=== PATIENT | male | born 1955 | race Caucasian/White ===

== ENCOUNTER 2018-01-08 17:00 | Emergency (ER) | payer BC ==
[2018-01-08] MEDS ORDERED: SODIUM CHLORIDE 0.9% FLUSH 10 ML SOL IV PRN (17:33)
[2018-01-08] MEDS: SODIUM CHLORIDE 0.9% 1000ML 1,000 ML IV SCH ×2 (17:42→18:45)
[2018-01-08 17:46] LABS: BASOPHILS % (AUTO) 1 % (0-3); EOSINOPHILS % (AUTO) 2 % (0-9); HEMATOCRIT 46 % (39-53); MEAN CORPUSCULAR HGB CONC 34.4 gm/dl (32.0-36.0); MEAN CORPUSCULAR VOLUME 86 fL (80-100); MONOCYTES % (AUTO) 20.7 % (0-12); NEUTROPHILS % (AUTO) 65.4 % (37-80)
[2018-01-08 17:52] LABS: CALCIUM 8.3 mg/dl (8.5-10.1); POTASSIUM 3.4 mMol/L (3.5-5.1)
[2018-01-08 18:17] VITALS: RESP 16
[2018-01-08] MEDS ORDERED: SODIUM CHLORIDE 0.9% 1000ML 1,000 ML IV SCH (18:30)
[2018-01-08] MEDS ORDERED: POTASSIUM CHLORIDE 10 MEQ TER PO ONE ×2 (18:33→21:00)
[2018-01-08] MEDS ORDERED: POTASSIUM CHLORIDE 10 MEQ TER ONE ×2 (18:34→21:21)
[2018-01-08] MEDS ORDERED: SODIUM CHLORIDE 0.9% 1000ML 1,000 ML IV ONE (20:03)
[2018-01-08 20:30] LABS: BASOPHILS % (AUTO) 1 % (0-3); EOSINOPHILS % (AUTO) 1 % (0-9); HEMATOCRIT 42 % (39-53); MEAN CORPUSCULAR HGB CONC 33.7 gm/dl (32.0-36.0); MEAN CORPUSCULAR VOLUME 87 fL (80-100); MONOCYTES % (AUTO) 21.6 % (0-12); NEUTROPHILS % (AUTO) 62.6 % (37-80)
[2018-01-08 20:37] LABS: CALCIUM 7.7 mg/dl (8.5-10.1); POTASSIUM 3.5 mMol/L (3.5-5.1)
[2018-01-08 21:27] VITALS: TEMP 97.4
[2018-01-08 22:08] LABS: APPEARANCE,URINE Slightly Cloudy; BILIRUBIN,URINE 1+ (NEGATIVE); COLOR,URINE Dark yellow; GLUCOSE, URINE (UA) NEGATIVE (NEGATIVE); KETONES,URINE NEGATIVE (NEGATIVE); LEUKOCYTE ESTERASE ,URINE NEGATIVE (NEGATIVE); NITRATE,URINE NEGATIVE (NEGATIVE); OCCULT BLOOD,URINE TRACE LYSED (NEG-TRACE); UROBILINOGEN,URINE 0.2 (0.2-1.0 EU)
[2018-01-08 22:21] LABS: ICTOTEST,URINE NEGATIVE (NEGATIVE); RBC,URINE NEG (0-3AV/HPF); WBC,URINE 0-2 (0-5AV/HPF)
[2018-01-08 23:07] VITALS: BP 118/67; PULSE 87; O2SAT 95
== END 2018-01-08 23:14 | disposition short-term general hospital (02) ==
LOC: ED 17:00
DX: R19.7 Diarrhea, unspecified (principal); E86.0 Dehydration; N28.9 Disorder of kidney and ureter, unspecified; R79.89 Other specified abnormal findings of blood chemistry; R06.02 Shortness of breath; E87.1 Hypo-osmolality and hyponatremia; E86.1 Hypovolemia; R53.83 Other fatigue; R11.2 Nausea with vomiting, unspecified; R55 Syncope and collapse
CPT/HCPCS: 36415; 80048; 81001; 82550; 83880; 85025; 85378; 93005; 96365; 96366; 99284; 99285; A9270-GY